=== PATIENT | male | born 1975 | race Caucasian/White ===

== ENCOUNTER 2020-05-08 18:02 | Emergency (ER) | payer OTHER ==
[~2020-05-08] VITALS: Ht 182.9 cm; Wt 86.4 kg
[2020-05-08 18:07] VITALS: Ht 182.9 cm; Wt 86.4 kg
[2020-05-08 18:35] LABS: BASOPHILS 0.7 % (0-2); EOSINOPHILS 2.2 % (0-7); HEMATOCRIT 43.2 % (42.0-54.0); HEMOGLOBIN 14.6 g/dL (13.5-17.5); IMMATURE GRANULOCYTES 0.6 % (0-5); LYMPHOCYTES 48.1 % (15-50); MCH 30.4 pg (26.0-34.0); MCHC 33.8 g/dL (31.0-37.0); MCV 89.8 fL (80.0-100.0); MEAN PLATELET VOLUME 9.3 fL (7.4-10.4); NEUTROPHILS 38.4 % (40-80); PLATELET COUNT 290 10x3/uL (130-400); RBC 4.81 10x6/uL (4.20-6.10); WBC 8.3 10x3/uL (4.8-10.8)
[2020-05-08 18:45] LABS: APTT 26.5 SECONDS (22.8-39.4); INR 1.05 (0.85-1.17); PROTIME 13.7 SECONDS (11.6-15.0)
[2020-05-08 19:08] LABS: CALC OSMOLALITY 280 mosm/kg (275-300); CALCIUM 8.7 mg/dL (8.5-10.1); CARBON DIOXIDE 29.9 mmol/L (21.0-32.0); CHLORIDE - SERUM 104 mmol/L (98-107); CREATININE - SERUM 1.1 mg/dL (0.6-1.3); GLUCOSE 111 mg/dL (74-106); POTASSIUM - SERUM 3.3 mmol/L (3.5-5.1); SODIUM 140 mmol/L (136-145); UREA NITROGEN 16 mg/dL (7-18); eGFR NON AFRICAN AMERICAN 78 mL/min (90-120)
[2020-05-08 19:10] LABS: ALBUMIN 3.9 g/dL (3.4-5.0); ALKALINE PHOSPHATASE 65 U/L (30-120); ALT (SGPT) 19 U/L (10-68); BILIRUBIN - TOTAL 0.56 mg/dL (0.2-1.3); PROTEIN - SERUM 6.9 g/dL (6.4-8.2)
[2020-05-08] MEDS ORDERED: NORCO 7.5-3251 EACH GT (19:14)
[2020-05-08 20:22] VITALS: BP 136/89
[2020-05-11] MEDS ORDERED: FOCALIN10 MG PO (18:17)
== END 2020-05-08 20:22 | disposition home or self-care (01) ==
LOC: D.ER 18:02
PROVIDERS: Family Medicine
DX: M25.512 Pain in left shoulder (principal); S01.01XA Laceration without foreign body of scalp, initial encounter; S42.022A Displaced fracture of shaft of left clavicle, initial encounter for closed fracture; W12.XXXA Fall on and from scaffolding, initial encounter; Y93.89 Activity, other specified

== ENCOUNTER 2020-05-12 06:40 | Day surgery (SDC) | payer OTHER ==
[~2020-05-12] VITALS: Ht 182.9 cm; Wt 86.2 kg
[~2020-05-12 06:40] MED LIST: FOCALIN10 MG PO; NORCO 7.5-3251 EACH GT
[2020-05-12 08:33] VITALS: Ht 182.9 cm; Wt 86.2 kg
--- NOTE | 2020-05-12 13:11 | NUR ---
RED RASH PRESENT ON INSIDE OF LEFT ARM BEFORE PREPPING .
--- NOTE | 2020-05-12 13:15 | NUR ---
PT HAS RED RASH ON LEFT UPPER ARM. DR EDGE AT BEDSIDE TO EVALUATE. PRE-EXISTING PER PT.
--- NOTE | 2020-05-12 15:17 | NUR ---
1400 INSTRUCTIONS GIVEN AND SPRITE. TO DRINK. 1500 IV REMOVED AND PT DRESSED
--- NOTE | 2020-05-13 13:45 | OP ---
PATIENT NAME: FIDELIA ARIAS MEDICAL RECORD: [id number] :77 LOCATION:[facility] ADMISSION DATE: SURGEON: HAMILTON BURNETT MD DATE OF OPERATION: 05/12/2020 PREOPERATIVE DIAGNOSIS: Left clavicle fracture. POSTOPERATIVE DIAGNOSIS: Left clavicle fracture. PROCEDURE PERFORMED: ORIF, left clavicle. INDICATIONS FOR THE PROCEDURE: Mr. Arias is a 44-year-old male with a history of left clavicle fracture. He fell off some scaffolding this past weekend when he injured his shoulder, sustained a midshaft clavicle fracture. Fracture is shortened and displaced and he has elected to proceed with surgery for operative repair. Risks, benefits, alternatives of surgery were discussed with the patient and consent was obtained. DESCRIPTION OF PROCEDURE: The patient was met in the holding area where his identity and confirmation of procedure was performed. Left upper extremity was marked. He was taken to the operating room where he was placed supine on the operating table. Anesthesia was administered. He was then positioned in the beach chair position. Extremities were positioned and padded appropriately. Left upper extremity was prepped and draped in a sterile fashion. The patient received preoperative antibiotics and timeout was performed before initiating the case. On initiation of the case, incision was made along the inferior border of the clavicle. We incised through the skin and subcutaneous tissues down to the overlying fascia. This was split transversely and we then dissected down to the bone. Muscle was released from the anterior border of the clavicle. We then elevated the tissues off the superior surface. Fracture was identified and debrided. We attempted to place a K-wire to stabilize the fracture, but given its transverse nature, it was difficult to maintain positioning. We therefore held it manually. A 7-hole [place] plate was fixed to the medial piece with a K-wire. We were then able to manipulate the lateral piece to obtain our reduction and to hold this in place with K-wires as well. The plate was fit to the bone and a cortical screw was placed just medial to the fracture. We then placed a lobster claw clamp to compress our fracture and a second cortical screw was placed just lateral to the fracture to compress the plate to the bone. Two more cortical screws were placed in the oblong holes of the plate and 2 locking screws were placed medial and distal to complete our fixation. This provided good fixation and alignment of our fracture. Final images were obtained shows good clavicle fixation. The wound was irrigated thoroughly with saline. The deep tissues were closed with 2-0 Vicryl. The tissue was reapproximated over the border of the clavicle. A running 2-0 Vicryl was then used to close the subcutaneous fascia. Subcutaneous tissues closed with 2-0 Vicryl and the skin was closed with a running subcuticular Monocryl. Steri-Strips were then applied. The shoulder was covered with a sterile dressing. He was placed into a sling. The patient was turned back over to anesthesia. He was awakened, extubated, and taken to recovery in stable condition. POSTOPERATIVE PLAN: The patient was going to return home with his family today. He is to remain in the sling at all times with instructions for no shoulder range of motion. He may come out and perform elbow, wrist and hand range of motion as tolerated. We will plan to see him back in clinic in two weeks. OPERATIVE REPORT [id number] FIDELIA ARIAS COMPLICATIONS: None. ANESTHESIA: General with peripheral nerve block. ESTIMATED BLOOD LOSS: 25 mL. TRANSINT:[id number] Voice Confirmation ID: [id number] DOCUMENT ID: [id number] HAMILTON BURNETT MD at 1345 CC: [id number] DICTATION DATE: 05/12/20 1315 PROJECT MGR: 05/12/20 2237 [facility] 05/12/20 [id number] [place] [address]
== END 2020-05-12 15:15 | disposition home or self-care (01) ==
LOC: D.OPS 06:40
PROVIDERS: ATTEND Orthopaedic Surgery
DX: S42.002A Fracture of unspecified part of left clavicle, initial encounter for closed fracture (principal); W19.XXXA Unspecified fall, initial encounter; K21.9 Gastro-esophageal reflux disease without esophagitis